=== PATIENT | female | born 1995 | race Two or more races ===

== ENCOUNTER 2024-06-02 16:30 | Emergency (ER) | payer BC, OTHER ==
[~2024-06-02] VITALS: Ht 175.3 cm; Wt 114.1 kg
[2024-06-02 19:08] VITALS: BP 129/62; PULSE 104; RESP 18; TEMP 99.6; O2SAT 98
[2024-06-02] MEDS ORDERED: CEFD300C2 PO (19:24)
--- NOTE | 2024-06-02 19:24 | ED.PDOC ---
Eye-HPI HPI Comments This is a 28-year-old female presents to the ED chief complaint flu- like symptoms x1 week. Reports was seen at urgent care in [place] had a flu, RSV, and COVID swab which she reports were negative. Patient was then discharged and advised just to take newa-ggn-bugxisq medications not to start any antibiotics at this time follow up in the ER or urgent care if symptoms persist. States symptoms have gotten worse over the past 24 hours she notes severe sore throat. Has been taking [id number] Tylenol with little relief. He denies difficulty breathing, shortness of breath, chest pain, vomiting, diarrhea, vaginal bleeding, vaginal spotting, abdominal pain or cramping. Chief Complaint: Cough Time Seen by MD: 18:17 Primary Care Provider: CALVIN BENITEZ Reviewed Notes: Nurses Notes, Medications, Allergies Home Meds Active Scripts Cefdinir (Cefdinir) 300 Mg Cap, 1 CAP PO BID for 7 Days, #14 CAP Prov:PNEGZE WardK VICTORINA 06/02/24 Information Source: Patient Mode of Arrival: Ambulatory Past Medical History PAST MEDICAL HISTORY: Denies Surgical History: Denies all surgeries DIRECTOR HUMAN SERVICES History: No Pertinent DIRECTOR HUMAN SERVICES History Family History Family History: Reviewed,noncontributory to illness Social History Smoker: Non-Smoker Alcohol: Denies ETOH Use Drugs: Denies Drug Use Constitutional: reports: fever; denies: chills, diaphoresis, fatigue, malaise, sweats, weakness, others EENTM: reports: nasal discharge, throat pain, throat swelling; denies: blurred vision, double vision, ear bleeding, ear discharge, ear drainage, ear pain, ear ringing, eye pain, eye redness, hearing loss, mouth pain, mouth swelling, nose bleeding, nose congestion, nose pain, photophobia, tearing, voice changes, others Respiratory: reports: cough; denies: hemoptysis, orthopnea, SOB at rest, shortness of breath, SOB with excertion, stridor, wheezing, others Cardiovascular: denies: chest pain, dizzy spells, diaphoresis, Dyspnea on exertion, edema, irregular heart beat, left arm pain, lightheadedness, palpitations, PND, syncope, others Gastrointestinal: denies: abdomen distended, abdominal pain, blood streaked bowels, constipated, diarrhea, dysphagia, difficulty swallowing, hematemesis, melena, nausea, poor appetite, poor fluid intake, rectal bleeding, rectal pain, vomiting, others Genitourinary: denies: abnormal vagina bleeding, burning, dyspareunia, dysuria, flank pain, frequency, hematuria, incontinence, pain, , vagina discharge, urgency, others Neurological: denies: dizziness, fainting, headache, left sided numbness, left sided weakness, numbness, paresthesia, pre-existing deficit, right sided numbness, right sided weakness, seizure, speech problems, tingling, tremors, weakness, others Musculoskeletal: denies: back pain, gout, joint pain, joint swelling, muscle pain, muscle stiffness, neck pain, others Integumetry: denies: bruises, change in color, change in hair/nails, dryness, laceration, lesions, lumps, rash, wounds, others Allergic/Immunocompromised: denies: Difficulty Healing, Frequent Infections, Hives, Itching, others Hematologic/Lymphatic: denies: anemia, blood clots, easy bleeding, easy bruising, swollen glands, others Endocrine: denies: excessive hunger, excessive sweating, excessive thirst, excessive urination, flushing, intolerance to cold, intolerance to heat, unexplained weight gain, unexplained weight loss, others Psychiatric: denies: anxiety, bipolar disorder, depression, hopeless, panic disorder, schizophrenia, sleepless, suicidal, others Physical Exam General Appearance: No Apparent Distress, Normal HEENT: Pharyngeal Erythema, TMs Normal, Tonsillar Exudate (Grade 4 tonsils with exudate bilateral no noted peritonsillar abscess) Neck: Full Range of Motion, Non-Tender, Normal, Normal Inspection Respiratory: Chest Non-Tender, Lungs Clear, No Accessory Muscle Use, No Respiratory Distress, Normal Breath Sounds Cardiovascular: No Edema, No JVD, No Murmur, No Gallop, Normal Peripheral Pulses, Regular Rate/Rhythm Breast Exam: Deferred Gastrointestinal: No Organomegaly, Non Tender, No Pulsatile Mass, Normal Bowel Sounds, Soft Genitalia: Deferred Pelvic: Deferred Rectal: Deferred Extremities: No calf tenderness, Normal capillary refill, Normal inspection, Normal range of motion, Non-tender, No pedal edema Musculoskeletal : Apperance: Normal Neurologic: Alert, tank truck driver II-XII nml as Tested, No Motor Deficits, Normal Affect, Normal Mood, No Sensory Deficits Cerebellar Function: Normal Reflexes: Normal Skin: Dry, Normal Color, Warm Lymphatic: No Adenopathy Was a procedure done? Was a procedure done?: No EENT DIFF Eye: N/A Ear: Otitis Media, Perforation Sore Throat: Peritonsillar Abscess, Peritonsillar Cellulitis, Streptococcal, Viral Pharyngitis X-Ray, Labs, Meds, VS Vital Signs Date Time Temp Pulse Resp B/P (MAP) Pulse Ox O2 Delivery O2 Flow Rate FiO2 06/02/24 19:08 104 18 98 Room Air 06/02/24 19:08 99.6 104 18 129/62 (84) 98 99.6 06/02/24 16:40 99.6 104 18 129/62 (84) 98 06/02/24 16:40 18 98 Room Air* 0 21 Current Medications Medications (Trade) Dose Ordered Sig/Nivia Route Start Time Stop Time Status Last Admin Ceftriaxone Sodium (Rocephin) 1,000 mg ONCE ONCE IM 06/02/24 19:30 06/02/24 19:31 DC 06/02/24 19:40 X-Ray, Labs, Meds, VS Comment Bacterial at this point we will start trial of cefdinir twice daily x7 days patient given Rocephin 1 g IM. Patient requesting discharge at this time advised to rest increase p.o. fluids with electrolytes [id number] Tylenol as needed for pain or fever. Advised to follow up with PCP in 2-3 days as necessary ER return precautions given patient indicated understanding agrees with discharge plan of care. Time of 1ST Reevaluation: 19:22 Reevaluation 1ST: Improved Patient Education/Counseling: Diagnosis, Treatment, Prognosis, Need For Follow Up Family Education/Counseling: No Family Present Departure 1 Departure Time of Disposition: 19:21 Impression: Primary Impression: Acute tonsillitis Qualified Codes: J03.90 - Acute tonsillitis, unspecified Disposition: HOME / SELF CARE / HOMELESS Condition: Stable e-Prescriptions Cefdinir (Cefdinir) 300 Mg Cap 1 CAP PO BID for 7 Days, #14 CAP Prov: KEKE KHOURY 06/02/24 Discharged With: Self Critical Care Note Critical Care Time?: No Stability Stability form required: No KEKE KHOURY Jun 02, 2024 19:24
[2024-06-02] MEDS ORDERED: LIDOCAINE 1% HCL (LOCAL ANESTH.) INJ 20ML MDV ONE (19:36)
[2024-06-02] MEDS: cefTRIAXone SOD 1,000 MG VL IM ONE (19:40)
== END 2024-06-02 19:52 | disposition home or self-care (01) ==
LOC: ER 16:32
DX: J03.90 Acute tonsillitis, unspecified (principal)
CPT/HCPCS: 96372; 99283; J0696; J2003

== ENCOUNTER 2024-09-24 16:02 | Observation (INO) | payer BC ==
[~2024-09-24] VITALS: Ht 175.3 cm; Wt 127.0 kg
--- NOTE | 2024-09-24 16:43 | DVH ---
Procedure: US BIOPHYSICAL PROFILE 09/24/2024 04:12 PM Indication: decreased movement Comparison: None Technique: Sonogram of gravid uterus utilizing grayscale and color techniques. FINDINGS: Single living intrauterine gestation. Presentation: Cephalic Placenta: Fundal heart rate: 156 bpm MCKAY: 13 cm, DVP: 6.6 cm Maternal cervix: Not visualized Biophysical Profile: breathing score: 2 movement score: 2 tone: 2 Quantitative MCKAY score: 2 Total score: 8/8 IMPRESSION: 1. Single living as above. 2. Biophysical profile score: 8/8.
[2024-09-24 16:58] LABS: Basophils # (auto) 0 10 ^3/uL (0-0.2); Basophils % (auto) 0.3 % (0.0-2.0); Eosinophils # (auto) 0 10 ^3/uL (0-0.8); Eosinophils % (auto) 0.5 % (0.0-7.0); Hematocrit 33.1 % (36.0-46.0); Hemoglobin 10.9 g/dL (12.2-16.2); Lymphocytes # (auto) 1.3 10 ^3/uL (0.4-5.4); Lymphocytes % (auto) 19.3 % (10.0-50.0); Mean Corpuscular Hemoglobin 27.4 pg (28.0-32.0); Mean Corpuscular Volume 83.1 fL (80.0-100.0); Monocytes # (auto) 0.5 10 ^3/uL (0-1.3); Monocytes % (auto) 6.8 % (0.0-12.0); Neutrophils % (auto) 73.1 % (37.0-80.0); Nucleated Red Blood Cells % 0.3 %; Platelet Count (auto) 223 10^3/uL (140-450); Red Blood Cells 3.98 10^6/uL (4.0-5.20); Red Cell Distribution Width 17.4 % (11.8-14.3); White Blood Cell 6.8 10^3/uL (4.4-10.8)
[2024-09-24 17:06] LABS: Urine Amorphous Crystal FEW /hpf (None Seen); Urine Bacteria MOD /hpf (None Seen); Urine Blood Negative /uL (Negative); Urine Clarity Turbid (Clear); Urine Color Yellow (Yellow); Urine Mucus FEW (None Seen); Urine Protein, UAD TRACE (Negative); Urine Specific Gravity 1.022 (1.001-1.035); Urine Squamous Epithelial Cell FEW /hpf (<5); Urine Urobilinogen Normal (Negative); Urine WBC 8 /HPF (0-5)
[2024-09-24 17:12] LABS: Alanine Aminotransferase 11 U/L (7-40); Albumin 3.7 g/dL (3.2-4.8); Anion Gap 10 (5-15); Aspartate Aminotransferase 13 U/L (13-40); BUN/Creatinine Ratio 12.3 (10.0-20.0); Calcium 9.1 mg/dL (8.7-10.4); Carbon Dioxide 22 mmol/L (20-31); Chloride 106 mmol/L (98-107); Glucose 95 mg/dL (74-106); Potassium 3.9 mmol/L (3.5-5.1); Sodium 138 mmol/L (136-145); Total Protein 6.2 g/dL (5.7-8.2)
[2024-09-24 17:13] LABS: INR 0.95 (0.9-1.15); Prothrombin Time 10.1 sec (9.3-11.8)
[2024-09-24 17:16] LABS: Opiate Scree,Urine Neg (NEGATIVE)
[2024-09-24 18:07] LABS: Amphetamine Screen, Urine Neg (NEGATIVE); Barbiturate Scree,Urine Neg (NEGATIVE); Benzodiazephine Screen, Urine Neg (NEGATIVE); Cannabinoid Screen, Urine Neg (NEGATIVE); Cocaine Screen, Urine Neg (NEGATIVE); Phencyclidine Screen, Urine Neg (NEGATIVE)
[2024-09-24 18:07] LABS: Alkaline Phosphatase 152 U/L (46-116); Bilirubin, Total 0.2 mg/dL (0.2-1.0); Blood Urea Nitrogen 8 mg/dL (9-23)
--- NOTE | 2024-09-24 20:36 | DVHDS2 ---
Physician Discharge Progress N Final Diagnosis: 3rd trim preg decreased movements Operations or Procedures: Operations or Procedures NST/BPP/ MCKAY PATIENT: KIRSTY VANG PACCT: [id number] UNIT: [id number] : 1995 LOC: [facility] ROOM / BED: TRIAGE1 / A AGE / SEX: 28 / F ADM STATUS: ADM IN SERVICE 1610 ORDERING PHYSICIAN: NATASHA PRINCE DO PROCEDURE(s): BPP - BIOPHYSICAL PROFILE REASON: decreased movement ORDER NUMBER(s): [id number], ACCESSION NUMBER(s): [id number] Procedure: US BIOPHYSICAL PROFILE 09/24/2024 04:12 PM Indication: decreased movement Comparison: None Technique: Sonogram of gravid uterus utilizing grayscale and color techniques. FINDINGS: Single living intrauterine gestation. Presentation: Cephalic Placenta: Fundal heart rate: 156 bpm MCKAY: 13 cm, DVP: 6.6 cm Maternal cervix: Not visualized Biophysical Profile: breathing score: 2 movement score: 2 tone: 2 Quantitative MCKAY score: 2 Total score: 8/8 IMPRESSION: 1. Single living as above. 2. Biophysical profile score: 8/8. Commentary: Commentary Not in labor Reassuring status Condition on Discharge: Stable Disposition: Home Discharge Instructions: Diet: Regular Activity: No Restrictions, As Tolerated Follow Up/Referral: PRN Medications: NA Follow Up Care: Discharge Statement: "Patient was advised to return to the ER or call 911 if any headaches, dizziness, shortness of breath, chest pain, abdominal pain, bleeding, fevers, or worsening of medical condition. Patient was counseled about treatment plan, medications, possible side effects, patientverbalized understanding. All questions were answered to the best of my ability. This discharge took greater then 30 minutes in planning, reviewing documentation, counseling the patient, and discussing with other team members." Visit Coding OBGYN Date of Service: Sep 24, 2024 Billing Provider: NATASHA PRINCE DO CORK SORTER Common Visit Codes: 86875-FEU/OBS SAME DATE (MOD) NATASHA PRINCE DO Sep 24, 2024 20:36
[2024-09-27 01:06] LABS: Chlamydia Trachomatis, NAA Negative (Negative); Neisseria gonorrhoeae, NAA Negative (Negative)
== END 2024-09-24 17:16 | disposition home or self-care (01) ==
LOC: LDRP 16:02
PROVIDERS: ADMIT Obstetrics & Gynecology; ATTEND Obstetrics & Gynecology
DX: O36.8130 Decreased fetal movements, third trimester, not applicable or unspecified (principal); R79.1 Abnormal coagulation profile; Z98.890 Other specified postprocedural states; Z79.899 Other long term (current) drug therapy; Z3A.40 40 weeks gestation of pregnancy
CPT/HCPCS: 36415; 76818; 80053; 80307; 81001; 81002; 85025; 85610; 85730; 86703; 86780; 86803; 86850; 86900; 86901; 87340; 87491; 87591; 94760; G0378; 76819

== ENCOUNTER 2024-09-26 05:02 | Inpatient (IN) | payer BC ==
[~2024-09-26] VITALS: Ht 175.3 cm; Wt 130.2 kg
--- NOTE | 2024-09-26 06:35 | DVHHP2 ---
OB CC & HPI Patient Identification: : 2 Para: 1 EDC: Sep 22, 2024 EGA: 40-09/04 Chief Complaints: Reason for admission: active labor Admission Nurse Assessment Rev: Yes History of Present Complaints Patient had care in [place] Past Medical History Cardiac: No pertinent Hx Pulmonary: No pertinent Hx Central Nervous System: No pertinent Hx GI: No pertinent Hx Hemotology/Oncology: No pertinent Hx Hepatobiliary: No pertinent Hx Psychiatric: No pertinent Hx Musculoskeletal: No pertinent Hx Rheumotologic: No pertinent Hx Infectious Disease: No peritnent Hx ENT: No pertinent Hx Renal/: No pertinent Hx Endocrine: No pertinent Hx Dermatology: No pertinent Hx OB History OB History Care: Good Care (Not currently available for review) Ultrasounds: Normal mid trimester US (Per patient normal ultrasound) Obstetrical Complications: None Medical Complications: None (Per patient no complications) Allergies: Coded Allergies: NO KNOWN ALLERGIES (Unverified , 09/24/24) Home Meds No Active Prescriptions or Reported Meds Family & Social History Family/Social History Blood Type: Unknown Rubella: unknown RPR/VDRL: Unknown GBS Status: Unknown HBsAG: Unknown Review of Systems Constitutional: No symptom reported Ears, Nose, & Throat: No symptom reported Eyes: No symptom reported Pulmonary/Respiratory: No symptom reported Cardiovascular: No symptom reported Gastrointestinal: No symptom reported Genitourinary: No symptom reported Musculoskeletal: No symptom reported Skin: No symptom reported Psychiatric: No symptom reported Endocrine: No symptom reported Hemotologic/Lymphatic: No symptom reported OB Admission Exam Physical Exam Cervical Dilatation: 7cm Effacement: 75% Station: -1 Membranes: Intact Heart Rate: 140's Accelerations: Accelerations Present Decelerations: No Decelerations Short Term Variability: Present Half-Way Variability: Average (6-25) Contractions on Admission: < 5 Minutes Apart Intensity: Moderate OB Plan Plan Admitting Diagnosis: post dates 40 4/7 weeks Plan: Expectant Management (Active labor intact) JUDY TAM DO Sep 26, 2024 06:35
[2024-09-26] MEDS ORDERED: LIDOCAINE 2%HCL (LOCAL ANESTH.) INJ 20ML MDV IJ PRN (06:45)
[2024-09-26] MEDS: PHISODERM TOP SOLN 240ML BTL TOP PRN (06:52)
[2024-09-26] MEDS: WITCH HAZEL-GLYCERIN PAD TOP PRN (06:52)
[2024-09-26] MEDS: LACTATED RINGER'S 1,000 ML IV SCH (06:53)
[2024-09-26] MEDS: DERMOPLAST 60ML BOTTLE TOP PRN (06:53)
[2024-09-26 07:04] LABS: Basophils # (auto) 0 10 ^3/uL (0-0.2); Basophils % (auto) 0.3 % (0.0-2.0); Eosinophils # (auto) 0 10 ^3/uL (0-0.8); Eosinophils % (auto) 0.1 % (0.0-7.0); Hematocrit 33.2 % (36.0-46.0); Hemoglobin 11.2 g/dL (12.2-16.2); Lymphocytes # (auto) 1.1 10 ^3/uL (0.4-5.4); Lymphocytes % (auto) 10.2 % (10.0-50.0); Mean Corpuscular Hemoglobin 27.7 pg (28.0-32.0); Mean Corpuscular Hgb Conc. 33.7 g/dL (32.0-36.0); Mean Corpuscular Volume 82.3 fL (80.0-100.0); Monocytes # (auto) 0.5 10 ^3/uL (0-1.3); Monocytes % (auto) 4.5 % (0.0-12.0); Neutrophils # (auto) 8.8 10 ^3/uL (1.6-8.6); Neutrophils % (auto) 84.9 % (37.0-80.0); Nucleated Red Blood Cells % 0.1 %; Platelet Count (auto) 197 10^3/uL (140-450); Red Blood Cells 4.04 10^6/uL (4.0-5.20); Red Cell Distribution Width 17.4 % (11.8-14.3); White Blood Cell 10.4 10^3/uL (4.4-10.8)
[2024-09-26 07:19] LABS: Albumin 3.8 g/dL (3.2-4.8); Anion Gap 12 (5-15); Aspartate Aminotransferase 14 U/L (13-40); BUN/Creatinine Ratio 15.4 (10.0-20.0); Blood Urea Nitrogen 10 mg/dL (9-23); Calcium 8.9 mg/dL (8.7-10.4); Carbon Dioxide 20 mmol/L (20-31); Chloride 104 mmol/L (98-107); Glucose 106 mg/dL (74-106); Total Protein 6.5 g/dL (5.7-8.2)
[2024-09-26 07:20] LABS: Bilirubin, Total 0.4 mg/dL (0.2-1.0)
[2024-09-26 07:21] LABS: Alanine Aminotransferase 9 U/L (7-40); Alkaline Phosphatase 152 U/L (46-116); INR 0.94 (0.9-1.15); Partial Thromboplastin Time 27.7 SEC (24.5-34.5); Sodium 136 mmol/L (136-145)
[2024-09-26] MEDS: NALOXONE HCL 0.4 MG/ML VIAL IV ONE (07:30)
[2024-09-26] MEDS: ePHEDrine SULFATE 50 MG/ML AMP IV ONE (07:30)
[2024-09-26] MEDS: ePHEDrine SULFATE 50 MG/ML AMP ONE (07:44)
[2024-09-26] MEDS: ROPIVACAINE HCL 200 ML ONE (08:03)
--- NOTE | 2024-09-26 08:28 | DVHPN2 ---
CNM Labor Progress Note Date and Time Seen Date Seen: Sep 26, 2024 Time Seen: 08:20 Subjective Patient reports: No new complaints Objective Vital Signs VSS, see CPN Monitoring Method Monitoring Method: External Heart Rate Heart Rate Baseline: 140 Heart Rate Variability: Moderate Presence of FHR Accelerations: Yes Presence of FHR Decelerations: No Changes in Trends of Patterns: No Are all 5 Components of the FH: Yes Contractions Contractions Frequency: Other (q2-4min) Duration of Contraction: 80 Contractions Intensity: Moderate Contractions Resting Tone: Relaxed Membranes Membranes: Intact Vaginal Exam Vag Exam Deferred: Yes (SVE by RN: 9/0) Medications Medications - Pitocin: No Medication - Epidural: Yes Lab Results Lab Results Vital Signs Date Time Temp Pulse Resp B/P (MAP) Pulse Ox O2 Delivery O2 Flow Rate FiO2 09/26/24 23:00 98.9 98 16 121/68 (85) 97 98.9 09/26/24 18:50 Room Air 09/26/24 13:00 0.0 I & O 09/27/24 07:00 Output Total 1250 ml Balance -1250 ml Output Urine Total 1250 ml # Voids 10 Current Medications Medications (Trade) Dose Ordered Sig/Nivia Start Time Stop Time Status Last Admin Dose Admin Lactated Ringer's 1,000 ml @ 125 mls/hr Q8H 09/26/24 06:45 09/26/24 14:11 DC 09/26/24 08:02 125 MLS/HR Witch Jenniffer (Tucks) 1 pad PRN PRN 09/26/24 06:45 09/26/24 06:52 1 PAD Sodium Lauryl Sulfate (Phisoderm) 240 ml PRN PRN 09/26/24 06:45 09/26/24 06:52 240 ML Benzocaine (Dermoplast) 1 applic PRN PRN 09/26/24 06:45 09/26/24 06:53 1 APPLIC Oxytocin 500 ml @ 999 mls/hr Q31M ONCE 09/26/24 06:45 09/26/24 07:15 DC 09/26/24 11:14 999 MLS/HR Oxytocin 500 ml @ 125 mls/hr Q4H ONCE 09/26/24 07:15 09/26/24 11:14 DC 09/26/24 11:15 125 MLS/HR Naloxone HCl (Narcan) 0.2 mg PRN ONCE 09/26/24 07:30 09/26/24 07:49 DC Ephedrine Sulfate (ePHEDrine SULFATE) 10 mg PRN ONCE 09/26/24 07:30 09/26/24 07:49 DC Ibuprofen (Motrin Tablet) 600 mg Q6HP PRN 09/26/24 11:45 Acetaminophen (Tylenol Tablet) 650 mg Q6HPRN PRN 09/26/24 11:45 Prenat Multivit/ [place]/Iron/Folic Ac (Prenavite Tablet) 1 DAILY 09/27/24 10:00 Docusate Sodium (Colace Capsule) 200 mg HS 09/26/24 22:00 09/26/24 22:34 200 MG Laboratory Tests Test 09/26/24 08:20 09/26/24 06:14 Range/Units Urine Color Yellow Yellow Urine Clarity Clear Clear Urine pH 6.5 5.0-9.0 Urine Specific [place] 1.033 1.001-1.035 Urine Protein 1+ H Negative Urine Ketones Negative Negative Urine Blood 2+ H Negative /uL Urine Nitrite Negative Negative Urine Bilirubin Negative Negative Urine Urobilinogen Normal Negative mg/dL Urine Leukocyte Esterase Negative Negative /uL Urine RBC 191 0 - 4 /hpf Urine Microscopic WBC 1 0-5 /HPF Urine Squamous Epithelial Cells Few <5 /hpf Urine Bacteria Few H None Seen /hpf Urine Mucus Few None Seen Urine Glucose Normal Normal mg/dL Urine Opiates Screen Neg NEGATIVE Urine Fentanyl Screen Neg NEGATIVE Urine Barbiturates Screen Neg NEGATIVE Urine Phencyclidine Screen Neg NEGATIVE Urine Amphetamines Screen Neg NEGATIVE Urine Benzodiazepines Screen Neg NEGATIVE Urine Cocaine Screen Neg NEGATIVE Urine Cannabinoids Screen Neg NEGATIVE White Blood Count 10.4 # 4.4-10.8 10^3/uL Red Blood Count 4.04 4.0-5.20 10^6/uL Hemoglobin 11.2 L 12.2-16.2 g/dL Hematocrit 33.2 L 36.0-46.0 % Mean Corpuscular Volume 82.3 80.0-100.0 fL Mean Corpuscular Hemoglobin 27.7 L 28.0-32.0 pg Mean Corpuscular Hemoglobin Concent 33.7 32.0-36.0 g/dL Red Cell Distribution Width 17.4 H 11.8-14.3 % Platelet Count 197 140-450 10^3/uL Mean Platelet Volume 8.9 6.9-10.8 fL Neutrophils (%) (Auto) 84.9 H 37.0-80.0 % Lymphocytes (%) (Auto) 10.2 10.0-50.0 % Monocytes (%) (Auto) 4.5 0.0-12.0 % Eosinophils (%) (Auto) 0.1 0.0-7.0 % Basophils (%) (Auto) 0.3 0.0-2.0 % Neutrophils # (Auto) 8.8 H 1.6-8.6 10 ^3/uL Lymphocytes # (Auto) 1.1 0.4-5.4 10 ^3/uL Monocytes # (Auto) 0.5 0-1.3 10 ^3/uL Eosinophils # (Auto) 0 0-0.8 10 ^3/uL Basophils # (Auto) 0 0-0.2 10 ^3/uL Nucleated Red Blood Cells 0.1 % Prothrombin Time 10.0 9.3-11.8 sec Prothrombin Time INR 0.94 0.9-1.15 Activated Partial Thromboplast Time 27.7 24.5-34.5 SEC Sodium Level 136 136-145 mmol/L Potassium Level 4.0 3.5-5.1 mmol/L Chloride Level 104 98-107 mmol/L Carbon Dioxide Level 20 20-31 mmol/L Anion Gap 12 5-15 Blood Urea Nitrogen 10 9-23 mg/dL Creatinine 0.65 0.550-1.02 mg/dL Glomerular Filtration Rate Calc 124 >90 mL/min BUN/Creatinine Ratio 15.4 10.0-20.0 Serum Glucose 106 74-106 mg/dL Calcium Level 8.9 8.7-10.4 mg/dL Total Bilirubin 0.4 0.2-1.0 mg/dL Aspartate Amino Transferase (AST) 14 13-40 U/L Alanine Aminotransferase (ALT) 9 7-40 U/L Alkaline Phosphatase 152 H 46-116 U/L Total Protein 6.5 5.7-8.2 g/dL Albumin 3.8 3.2-4.8 g/dL Treponema pallidum Antibody Non-reactive Negative Assessment Assessment 28yo IUP@40.4wks Category I EFM Intact Membranes GBS negative Plan Plan Expectant management for now due to frequent UCs monitoring per order Pain mgmt: epidural in place Frequent position changes in bed encouraged Limit SVE unless necessary Intrauterine resuscitation PRN Anticipate CNM will consult with Dr. Ewing PRN Plan discussed with: Patient Visit Coding OBGYN Date of Service: Sep 27, 2024 Billing Provider: SARA VELÁSQUEZ CNM LEAD ARCHITECT Common Visit Codes: [id number] INP/OBS CARE(MOD) SARA VELÁSQUEZ CNM Sep 26, 2024 08:28
[2024-09-26 08:49] LABS: Urine Bacteria FEW /hpf (None Seen); Urine Blood 2+ /uL (Negative); Urine Clarity Clear (Clear); Urine Color Yellow (Yellow); Urine Mucus FEW (None Seen); Urine Protein, UAD 1+ (Negative); Urine Specific Gravity 1.033 (1.001-1.035); Urine Squamous Epithelial Cell FEW /hpf (<5); Urine Urobilinogen Normal (Negative); Urine WBC 1 /HPF (0-5); Urine pH 6.5 (5.0-9.0)
[2024-09-26 09:04] LABS: Amphetamine Screen, Urine Neg (NEGATIVE); Barbiturate Scree,Urine Neg (NEGATIVE); Benzodiazephine Screen, Urine Neg (NEGATIVE); Cannabinoid Screen, Urine Neg (NEGATIVE); Cocaine Screen, Urine Neg (NEGATIVE); Opiate Scree,Urine Neg (NEGATIVE); Phencyclidine Screen, Urine Neg (NEGATIVE)
[2024-09-26] MEDS: LACT. RINGERS/OXYTOCIN 20UNITS 500 ML IV ONE ×2 (11:14→11:15)
[2024-09-26] MEDS ORDERED: ACETAMINOPHEN 325 MG TAB PO PRN (11:45)
--- NOTE | 2024-09-26 12:20 | LDN2 ---
Labor and Delivery Note Date 09/26/24 Age 28 2 Para 2 AB N/A EDC 09/21/2024 EGA 40.4 weeks Diagnosis Labor then Vaginal Delivery: VTX Vacuum Assisted: No Placenta: Spontaneous Sex: Female Weight 3400 grams Apgars 8/9 Nuchal Cord Transected: No Amniotic Fluid: Meconium Stained Anesthesia Epidural anesthesia Episiotomy: No Extension: No Repaired with left sulcus and left labial laceration, repaired with 3-0 Vicryl suture EBL QBL: 300 mL Labs Laboratory Tests 09/24/24 16:39: Hepatitis B Surface Antigen Negative, HIV (1&2) Antibody Negative Blood Bank 09/26/24 06:14: Blood Type A POSITIVE Complications N/A Conditions Stable Mix Chemist Dr. Johnson Comments/Significant Med Miguelina At 1101 this 28yo now delivered a viable Female by w/ APGARS 8/9. FAUSTINA. placed skin to skin on pts chest. Cord clamped and cut after pulsation ceased. Intact 3-vessel cord placenta delivered spontaneously, Vaughan and eccentric cord insertion. Pitocin IV bolus started. Placenta sent to pathology. Patient had epidural anesthesia. Cervix/vagina inspected (intact) and left labial and left sulcal lacerations present which were repaired with 3-0 vicryl suture. Fundus at U, firm, midline, and light lochia. QBL 300ml. VSS. Count correct x2. Patient to care and baby to couplet care, both stable. Visit Coding OBGYN Date of Service: Sep 26, 2024 Billing Provider: SARA VELÁSQUEZ CNM AIR CONDITIONING UNIT TESTER Common Visit Codes: PROCEDURE ONLY AIR CONDITIONING UNIT TESTER Procedure Codes: 94039-GDU DEL INCLUDING MAURI ALCOCER STDT MDWF Sep 26, 2024 12:20
[2024-09-26 15:00] VITALS: BP 118/69; PULSE 107; RESP 18; TEMP 98.1; O2SAT 95
[2024-09-26 18:50] VITALS: BP 112/59; PULSE 90; RESP 17; TEMP 98.4; O2SAT 97
[2024-09-26] MEDS: DOCUSATE SOD 100 MG CAP PO SCH (22:34)
[2024-09-26 23:00] VITALS: BP 121/68; PULSE 98; RESP 16; TEMP 98.9; O2SAT 97
[2024-09-27] MEDS ORDERED: PREN-96 PO (00:31)
[2024-09-27] MEDS ORDERED: DOCU-265 PO (00:31)
[2024-09-27] MEDS ORDERED: IBU600T PO (00:31)
--- NOTE | 2024-09-27 00:31 | DVHPN2 ---
Progress Note Date Seen: Sep 27, 2024 Subjective S: bleeding is less, eating food without issues, denies lightheaded/dizziness, pain well controlled with oral medications, no concerns with urinating, passing flatus, no BM yet, ambulating well, and bottle feeding vital signs Vital Sign Date Time Temp Pulse Resp B/P (MAP) Pulse Ox O2 Delivery O2 Flow Rate FiO2 09/26/24 23:00 98.9 98 16 121/68 (85) 97 98.9 09/26/24 18:50 Room Air 09/26/24 13:00 0.0 Total Intake and Output 09/26/24 09/26/24 09/27/24 15:00 23:00 07:00 Output Total 1250 ml Balance -1250 ml medications Current Medications Medications Dose Ordered Sig/Nivia Route Start Time Stop Time Status Last Admin Dose Admin Kathy Jenniffer 1 pad PRN PRN TOP 09/26/24 06:45 09/26/24 06:52 1 PAD Sodium Lauryl Sulfate 240 ml PRN PRN TOP 09/26/24 06:45 09/26/24 06:52 240 ML Benzocaine 1 applic PRN PRN TOP 09/26/24 06:45 09/26/24 06:53 1 APPLIC Lidocaine HCl 40 ml ONCE PRN IJ 09/26/24 06:45 Cancel Ibuprofen 600 mg Q6HP PRN PO 09/26/24 11:45 Acetaminophen 650 mg Q6HPRN PRN PO 09/26/24 11:45 Prenat Multivit/ Carriage Setter/Iron/Folic Ac 1 DAILY PO 09/27/24 10:00 Docusate Sodium 200 mg HS PO 09/26/24 22:00 09/26/24 22:34 200 MG laboratory and microbiology Laboratory Tests 09/26/24 06:14 Test 09/26/24 06:14 Range/Units Serum Glucose 106 74-106 mg/dL Objective O: VSS Chest: heart sounds normal and lung sounds clear bilaterally Abd: soft, non-tender, fundus at U/firm/midline, active bowel sounds, no rebound or guarding Perineum: sutures intact, edges well approximated, no erythema/edema noted Ext: Non-tender, No edema, 2+ BLE DTRs Lochia: minimal See lab results Problems(with codes): (1) (normal spontaneous vaginal delivery) (2) Laceration of vaginal wall or sulcus without perineal laceration during delivery (3) Obstetric labial laceration, delivered, current hospitalization Assessment/Plan A: 28yo now PPD#1 s/p Anemia Rh+ Rubella Immune Breast and formula feeding P: D/C home today Rx sent to pharmacy precautions and preeclampsia warning signs reviewed F/U with [facility] OB office in 2 weeks Plan discussed with: Patient Visit Coding OBGYN Date of Service: Sep 27, 2024 Billing Provider: SARA VELÁSQUEZ CNM SALESPERSON FURNITURE Common Visit Codes: [id number] INP/OBS CARE(MOD) SARA VELÁSQUEZ CNM Sep 27, 2024 00:31
--- NOTE | 2024-09-27 00:31 | DVHDS2 ---
Obstetrics Discharge Summary Obstetrics Discharge Summary Date of Admission: Sep 26, 2024 Date of Discharge: Sep 27, 2024 Reason For Admission: Onset of Labor Procedures: NST Intrapartum Procedures: Spontaneous vaginal deliv Procedures: Hct/date: (09/27/24), Hgb/date: (09/27/24) Operative Complicat: Laceration (left sulcus and left labial lacerations) Discharge Diagnosis: Term -Delivered Discharge Information: Activity (as tolerated, no heavy lifting and nothing in the vagina for 6 weeks), Diet (Routine), Medications (Rx sent), Instructions (Routine), Discharge to (Home), Accompanied by (family), Discarge date (09/27/24) Visit Coding OBGYN Date of Service: Sep 27, 2024 Billing Provider: SARA VELÁSQUEZ CNM HOME APPLIANCE TECH Common Visit Codes: 61654-VFH/OBS DISCH DAY <30MIN SARA VELÁSQUEZ CNM Sep 27, 2024 00:31
[2024-09-27 03:00] VITALS: BP 107/64; PULSE 82; RESP 17; TEMP 98.3; O2SAT 97
[2024-09-27] MEDS: IBUPROFEN 600 MG TAB PO PRN (03:44)
[2024-09-27 07:00] VITALS: BP 119/61; PULSE 64; RESP 17; RESP 18; TEMP 98.1; O2SAT 90
[2024-09-27 09:40] LABS: Basophils # (auto) 0 10 ^3/uL (0-0.2); Basophils % (auto) 0.1 % (0.0-2.0); Eosinophils # (auto) 0 10 ^3/uL (0-0.8); Eosinophils % (auto) 0.5 % (0.0-7.0); Hematocrit 31.9 % (36.0-46.0); Hemoglobin 10.4 g/dL (12.2-16.2); Lymphocytes # (auto) 1.6 10 ^3/uL (0.4-5.4); Mean Corpuscular Hemoglobin 27.3 pg (28.0-32.0); Mean Corpuscular Hgb Conc. 32.7 g/dL (32.0-36.0); Mean Corpuscular Volume 83.6 fL (80.0-100.0); Monocytes # (auto) 0.4 10 ^3/uL (0-1.3); Monocytes % (auto) 4.6 % (0.0-12.0); Neutrophils # (auto) 6.5 10 ^3/uL (1.6-8.6); Neutrophils % (auto) 75.8 % (37.0-80.0); Platelet Count (auto) 182 10^3/uL (140-450); Red Blood Cells 3.82 10^6/uL (4.0-5.20); Red Cell Distribution Width 17.8 % (11.8-14.3); White Blood Cell 8.5 10^3/uL (4.4-10.8)
[2024-09-27] MEDS ORDERED: PRENATAL VITAMIN TAB PO SCH (10:00)
[2024-09-27 11:00] VITALS: BP 124/80; PULSE 84; RESP 18; TEMP 98.4; O2SAT 90
== END 2024-09-27 14:30 | disposition home or self-care (01) | DRG 807 ==
LOC: LDRP 05:02 → OBSVTOIN 06:32 → LDRP 17:07
PROVIDERS: ADMIT Obstetrics & Gynecology; ATTEND Obstetrics & Gynecology
PROC: 10E0XZZ Delivery of Products of Conception, External Approach (ICD-10-PCS; principal; 2024-09-26)
PROC: 0KQM0ZZ Repair Perineum Muscle, Open Approach (ICD-10-PCS; 2024-09-26)
PROC: 0UQMXZZ Repair Vulva, External Approach (ICD-10-PCS; 2024-09-26)
PROC: 3E0R3BZ Introduction of Anesthetic Agent into Spinal Canal, Percutaneous Approach (ICD-10-PCS; 2024-09-26)
PROC: 00HU33Z Insertion of Infusion Device into Spinal Canal, Percutaneous Approach (ICD-10-PCS; 2024-09-26)
DX: O48.0 Post-term pregnancy (principal); Z37.0 Single live birth; Z3A.40 40 weeks gestation of pregnancy; O70.0 First degree perineal laceration during delivery; O77.0 Labor and delivery complicated by meconium in amniotic fluid; O90.81 Anemia of the puerperium
CPT/HCPCS: 36415; 59409; 62282; 80053; 80307; 81001; 81002; 85025; 85610; 85730; 86780; 86850; 86900; 86901; 94760; 96360; 96361; 96365; 96366; G0378; J2590

== ENCOUNTER 2025-04-30 19:48 | Emergency (ER) | payer BC ==
[~2025-04-30] VITALS: Ht 175.3 cm; Wt 113.2 kg
[~2025-04-30 19:48] MED LIST: DOCU-265 PO; IBU600T PO; PREN-96 PO
[2025-04-30 19:50] VITALS: BP 135/94; PULSE 80; RESP 16; TEMP 98.7; O2SAT 97
[2025-04-30] MEDS ORDERED: AMOX875T4 PO (21:21)
--- NOTE | 2025-04-30 21:21 | ED.PDOC ---
Eye-HPI HPI Comments 29-year-old female presents to ER with right ear complaint x4 days. Patient reports she has been experiencing muffled hearing to right ear x4 days with associated intermittent dizziness when bending forward x1 day. Denies any pain and denies use of medications for current symptoms. Patient states that she recently recovered from a cold two weeks ago and presents to ER ambulatory on arrival, with steady gait, afebrile, in no distress. Denies fever, headache, body aches, chills, nausea/vomiting, recent swimming, ear drainage or any further symptoms/complaints Chief Complaint: Earache Time Seen by MD: 19:54 Primary Care Provider: CALVIN Courtney Notes: Nurses Notes, Medications, Allergies Allergies: Coded Allergies: NO KNOWN ALLERGIES (Unverified , 09/24/24) Home Meds Active Scripts Amoxicillin & Pot Clavulanate (Amoxicillin/Potassium Cla) 875 Mg Tab, 1 TAB PO BID for 10 Days, #20 TAB 0 Refills Prov:CARLTON YOUNGER 04/30/25 Vit W/ Ferrous Fumara ( One Daily) Daily Tab, 1 TAB PO DAILY, #90 TAB 3 Refills Prov:SARA VELÁSQUEZ 09/27/24 Ibuprofen Micronized (MOTRIN TABLET) 600 Mg Tb, 600 MG PO Q6HP PRN for 20 Days, #80 TAB Prov:SARA VELÁSQUEZ 09/27/24 Docusate Sodium (Docusate Sodium) 100 Mg Cap, 200 MG PO HS PRN for 30 Days, #60 CAP 2 Refills Prov:SARA VELÁSQUEZ 09/27/24 Information Source: Patient Mode of Arrival: Ambulatory Past Medical History PAST MEDICAL HISTORY: Denies Surgical History: Denies all surgeries SHANK SKINNER History: No Pertinent SHANK SKINNER History Family History Family History: Unknown Social History Smoker: Non-Smoker Alcohol: Denies ETOH Use Drugs: Denies Drug Use Lives In: Home Constitutional: denies: chills, diaphoresis, fatigue, fever, malaise, sweats, weakness, others EENTM: reports: others (As stated in HPI) Respiratory: denies: cough, hemoptysis, orthopnea, SOB at rest, shortness of breath, SOB with excertion, stridor, wheezing, others Cardiovascular: denies: chest pain, dizzy spells, diaphoresis, Dyspnea on exertion, edema, irregular heart beat, left arm pain, lightheadedness, palpitations, PND, syncope, others Gastrointestinal: denies: abdomen distended, abdominal pain, blood streaked bowels, constipated, diarrhea, dysphagia, difficulty swallowing, hematemesis, melena, nausea, poor appetite, poor fluid intake, rectal bleeding, rectal pain, vomiting, others Genitourinary: denies: abnormal vagina bleeding, burning, dyspareunia, dysuria, flank pain, frequency, hematuria, incontinence, pain, , vagina discharge, urgency, others Neurological: denies: dizziness, fainting, headache, left sided numbness, left sided weakness, numbness, paresthesia, pre-existing deficit, right sided numbness, right sided weakness, seizure, speech problems, tingling, tremors, we akness, others Musculoskeletal: denies: back pain, gout, joint pain, joint swelling, muscle pain, muscle stiffness, neck pain, others Integumetry: denies: bruises, change in color, change in hair/nails, dryness, laceration, lesions, lumps, rash, wounds, others Allergic/Immunocompromised: denies: Difficulty Healing, Frequent Infections, Hives, Itching, others Hematologic/Lymphatic: denies: anemia, blood clots, easy bleeding, easy bruising, swollen glands, others Endocrine: denies: excessive hunger, excessive sweating, excessive thirst, excessive urination, flushing, intolerance to cold, intolerance to heat, unexplained weight gain, unexplained weight loss, others Psychiatric: denies: anxiety, bipolar disorder, depression, hopeless, panic disorder, schizophrenia, sleepless, suicidal, others Physical Exam General Appearance: No Apparent Distress, Obese HEENT: PERRL/EOMI, Pharynx Normal, Other (Mild erythema noted to right middle ear canal. Remainder bilateral ear exam-unremarkable) Neck: Full Range of Motion, Non-Tender, Normal Respiratory: Chest Non-Tender, Lungs Clear, No Accessory Muscle Use, No Respiratory Distress, Normal Breath Sounds Cardiovascular: No Murmur, No Gallop, Regular Rate/Rhythm Breast Exam: Deferred Gastrointestinal: NOT DONE Genitalia: Deferred Pelvic: Deferred Rectal: Deferred Extremities: Normal capillary refill, Normal range of motion Neurologic: Alert, dosimetrist II-XII nml as Tested, No Motor Deficits, Normal Affect, Normal Mood, No Sensory Deficits Cerebellar Function: Normal Reflexes: Normal Skin: Dry, Normal Color, Warm Lymphatic: No Adenopathy Was a procedure done? Was a procedure done?: No Sedation Sedation?: No EENT DIFF Eye: N/A Ear: Abrasion, Cerumen Impaction, Foreign Body, Otitis Externa, Perforation, Sinusitis X-Ray, Labs, Meds, VS Vital Signs Date Time Temp Pulse Resp B/P (MAP) Pulse Ox O2 Delivery O2 Flow Rate FiO2 04/30/25 19:50 98.7 80 16 135/94 97 98.7 Advised to follow up with PCP in 1-2 days Patient verbalized understanding and agreeable with current plan of care Advised to return to ER immediately if symptoms worsen Time of 1ST Reevaluation: 21:04 Reevaluation 1ST: N/A Patient Education/Counseling: Diagnosis, Treatment, Prognosis, Need For Follow Up Family Education/Counseling: No Family Present SEPSIS Sepsis Screen Date sepsis recognized/suspect: Apr 30, 2025 Time Sepsis recognized/suspect: 1953 Recent Procedure: No On Antibiotic Therapy: No Respiratory Rate >20: No Heart Rate >90: No Temp<36 C (96.8 F) or >38.3 C: No SBP <90 or MAP <65 mmHG: No New Acute Mental Status Change: No Is the patient on CPAP, BIPAP,: No Vital Signs Date Time Temp Pulse Resp B/P (MAP) Pulse Ox O2 Delivery O2 Flow Rate FiO2 04/30/25 19:50 98.7 80 16 135/94 97 98.7 Departure 1 Departure Time of Disposition: 21:20 Impression: Primary Impression: Otitis media of right ear Qualified Codes: H66.91 - Otitis media, unspecified, right ear Disposition: HOME / SELF CARE / HOMELESS Condition: Stable e-Prescriptions Amoxicillin & Pot Clavulanate (Amoxicillin/Potassium Cla) 875 Mg Tab 1 TAB PO BID for 10 Days, #20 TAB 0 Refills Prov: CARLTON YOUNGER 04/30/25 Discharged With: Self Critical Care Note Critical Care Time?: No Stability Stability form required: No Heart Score Heart Score: Heart Score Response (Comments) Value History N/A 0 EKG N/A 0 Age N/A 0 Risk Factors N/A 0 Troponin N/A 0 Total 0 CARLTON YOUNGER Apr 30, 2025:21
== END 2025-04-30 21:32 | disposition home or self-care (01) ==
LOC: ER 19:54
DX: H66.91 Otitis media, unspecified, right ear (principal); Z79.899 Other long term (current) drug therapy